=== PATIENT | female | born 1990 | race Caucasian/White ===

== ENCOUNTER 2019-09-08 16:18 | Emergency (ER) | payer SELFPAY | END 2019-09-08 17:00 | disposition home or self-care (01) | LOC: NAV ERS 16:18 | DX: S09.21XA Traumatic rupture of right ear drum, initial encounter (principal); F32.9 Major depressive disorder, single episode, unspecified; F41.9 Anxiety disorder, unspecified; W22.8XXA Striking against or struck by other objects, initial encounter; Y93.11 Activity, swimming | CPT/HCPCS: 99283 ==